=== PATIENT | male | born 1965 | race Caucasian/White ===

== ENCOUNTER 2024-01-01 13:15 | Emergency (ER) | payer OTHER, SELFPAY ==
--- NOTE | ~2024-01-01 | XR_ITS ---
Right Shoulder Technique: AP and scapular Y views were obtained. Clinical History: Post reduction COMPARISON: 01/01/2024 at 1:20 PM Findings: No dislocation is seen currently. Questionable nondisplaced greater tuberosity fracture. Th e glenohumeral and acromioclavicular joint spaces are preserved. Soft tissues are unremarkable. Impression: Successful reduction of previously noted humeral head dislocation. Questionable nondisplaced greater tuberosity fracture. Consider CT to confirm or exclude fracture, if indicated. Reviewed, dictated and finalized at location . Impression: Successful reduction of previously noted humeral head dislocation. Questionable nondisplaced greater tuberosity fracture. Consider CT to confirm or exclude fr acture, if indicated.
--- NOTE | ~2024-01-01 | XR_ITS ---
XR shoulder RT min 2V 01/01/2024 13:31 Indication: Right shoulder dislocation Procedure: 2 views right shoulder Comparison: No prior studies for comparison. Findings: There is right anterior shoulder dislocation. Acromioclavicular joint and anatomic alignmen t. Surrounding osseous structures are unremarkable. Possible Hill-Sachs fracture deformity. Impression: 1: Right anterior shoulder dislocation with possible Hill-Sachs fracture deformity. Reviewed, dictated and finalized at location B. Impression: 1: Right anterior shoulder dislocation with possible Hill-Sachs fracture deform ity.
[2024-01-01 13:19] VITALS: PULSE 89; RESP 16; TEMP 36.4; O2SAT 98
[2024-01-01 13:23] VITALS: BP 112/76; PULSE 82; RESP 16; O2SAT 98
[2024-01-01] MEDS: HYDROcodone/acetaminophen (*CRX) 5-325 MG TABLET 1 TAB PO (14:01)
[2024-01-01] MEDS: KETOROLAC 30 MG/ML VIAL (*BKC) IM (14:01)
--- NOTE | 2024-01-01 14:37 | ED.GENADULT ---
HPI - General Adult General Chief complaint: Extremity Injury, Upper Stated complaint: R shoulder injury Time Seen by Provider: 01/01/24 13:55 History of Present Illness HPI narrative: This is a 58-year-old male presenting for shoulder pain. He was playing pickle ball when he fell onto an outstretched hand. He then had pain to his shoulder and inability to raise it. No loss of strength was seen. No other injuries. Related Data Allergies Allergy/AdvReac Type Severity Reaction Status Date / Time No Known Allergies Allergy Verified 01/01/24 13:24 Exam Narrative: APPEARANCE: No apparent distress. Head: atraumatic. EYES: EOMI, NOSE: Atraumatic NECK: Trachea midline RESPIRATORY: No increased rate of breathing CARDIOVASCULAR: RRR, ABDOMINAL: Non-distended MUSCULOSKELETAl: Focal exam of the right shoulder showed evidence of dislocation. Numbness over the lateral deltoid. Radial ulnar median nerve distribution intact in the hand. Pulses intact. NEURO: Alert. Moving 4/4 extremities SKIN:: Warm, dry. Normal color PSYCHIATRIC: Normal affect Course Vital Signs Vital signs: Vital Signs Temperature 97.5 F L 01/01/24 13:19 Pulse Rate 89 01/01/24 13:19 Respiratory Rate 16 01/01/24 13:19 Pulse Oximetry 98 01/01/24 13:19 Temperature 97.5 F L 01/01/24 13:19 Pulse Rate 82 01/01/24 13:23 Respiratory Rate 16 01/01/24 13:23 Blood Pressure 112/76 01/01/24 13:23 Pulse Oximetry 98 01/01/24 13:23 Procedures Orthopedic Joint Reduction Joint #1: Orthopedic Joint Reduction Date: 01/01/24 Time Out Performed: Yes Side: right Joint Reduction Location: shoulder Analgesia: nerve block Pre-Procedure Neuro Vascular Exam: abnormal (Lateral deltoid numbness) Local Anesthesia: lidocaine 1% and with epi Amount of anesthesic used (mL): 5 Shoulder Technique Used (if applicable): traction/counter-traction Post-reduction neuro exam: no change Post-reduction vascular: no change Post Reduction X-Ray Obtained: Yes Post Reduction X-Ray Results: reduced Splint Applied: Yes Patient Tolerated Procedure: well Medical Decision Making MDM Narrative Medical decision making narrative: -Course: 58-year-old male presenting with shoulder deformity. X-ray showed dislocation with possible Hill-Sachs deformity. Numbness over the lateral deltoid which is concerning for axillary nerve injury. Interscalene block was performed the shoulder was reduced without complication. Patient placed in a an arm immobilizer. Follow-up x-ray showed successful reduction but possibly nondisplaced fracture of the greater tuberosity. Patient given pain medication discharged with orthopedic follow-up. -DDX includes but is not limited to:Shoulde dislocation. Humerus fracture -Independent interpretation of studies: XR Right anterior shoulder dislocation with possible Hill-Sachs fracture deformity. -Procedures: Interscalene block, shoulder reduction -Interventions: Toradol, Alleene -Shared decision making / Disposition: discharge -RX Motrin Tylenol Robaxin Vital Signs Vital Signs: Vital Signs Temperature 97.5 F L 01/01/24 13:19 Pulse Rate 89 01/01/24 13:19 Respiratory Rate 16 01/01/24 13:19 Pulse Oximetry 98 01/01/24 13:19 Temperature 97.5 F L 01/01/24 13:19 Pulse Rate 82 01/01/24 13:23 Respiratory Rate 16 01/01/24 13:23 Blood Pressure 112/76 01/01/24 13:23 Pulse Oximetry 98 01/01/24 13:23 Discharge Plan Discharge Clinical Impression: Anterior shoulder dislocation, Axillary nerve injury, Hill-Sachs deformity with bone bruise of right upper extremity Patient Disposition: Home, Self-Care Condition: Stable Instructions: Antibiotic Form, Shoulder Dislocation (ED) Additional Instructions: You were seen in the emergency department for shoulder dislocation. Please follow-up with orthoped
[2024-01-01 14:58] VITALS: BP 127/89; PULSE 74; RESP 15; O2SAT 99
== END 2024-01-01 15:00 | disposition home or self-care (01) ==
PROVIDERS: Emergency Provider Emergency Medicine
DX: S43.004A Unspecified dislocation of right shoulder joint, initial encounter (principal); S44.31XA Injury of axillary nerve, right arm, initial encounter; S42.291A Other displaced fracture of upper end of right humerus, initial encounter for closed fracture; W19.XXXA Unspecified fall, initial encounter
CPT/HCPCS: 23650; 73030; 96372; 99285; A9270; J1885